=== PATIENT | female | born 1955 | race Caucasian/White ===

== ENCOUNTER 2017-11-30 11:31 | Inpatient (IN) | payer OTHER, SELFPAY ==
[2017-11-30 11:32] VITALS: BP 152/97; PULSE 74; RESP 16; TEMP 36.7; O2SAT 96; BMI 31.3
--- NOTE | 2017-11-30 11:39 | US_ITS ---
STUDY: ABDOMINAL ULTRASOUND - RIGHT UPPER QUADRANT REASON FOR VISIT: Female, 62 years old. Abdominal pain. History of breast cancer. TECHNIQUE: Ultrasound evaluation of the right upper quadrant was performed with real-time and static okeefe-scale imaging. TECHNICAL QUALITY: Adequate. COMPARISON: None. FINDINGS: Liver: The liver measures 17.6 cm. The liver is heterogeneous and nodular. The bile ducts are within normal limits. There is hepatic color flow. The direction of portal flow is hepatopetal. There is no demonstrated mass lesion. Gallbladder: Normal distended gallbladder. The gallbladder wall measures 10 mm. There is a positive sonographic Farfan's sign. There is pericholecystic fluid. There is a solitary echogenic gallstone within the gallbladder. Common Bile Duct (C.B.D.): The common bile duct measures 6 mm. Pancreas: Normal size of the head, body and tail of the pancreas. There is normal echogenicity of the pancreas. There is no demonstrated pancreatic mass or cyst. Right Kidney: Normal size of the right kidney. The right kidney measures 10.2 cm. Normal renal cortex. There is a 1.4 x 1.1 cm hyperechoic lesion in the right kidney US/Gallbladder IMPRESSION: Gallbladder wall thickening with pericholecystic fluid and a gallstone. The sap business analyst reports a positive sonographic Farfan sign. In the appropriate clinical setting, these findings are suspicious for acute cholecystitis and clinical correlation is recommended. Heterogeneous, nodular liver. Further evaluation with CT is recommended. 1.4 cm hyperechoic lesion in the lower pole of the right kidney. This may represent an angiomyolipoma. This can also be further evaluated with CT. Electronically Signed: Ulises Lindquist, at 14:22 EST Tel , Service support ,
--- NOTE | 2017-11-30 11:55 | ED.VISSUMM ---
- ER Visit Summary Date of Service: 11/30/17 Chief Complaint: Upper quadrant abdominal pain. History of Present Illness: The patient is a 62 F history of prior breast CA with prior mastectomy. Also has a history of dya-brwzdof-lkhzdvfqx diabetes and hypertension. Patient states intermittently for last several weeks she has had abdominal pain primarily right upper quadrant. Associated nausea vomiting. No diarrhea. No fever. No dysuria. Her primary care physician on Sunday and have labs drawn are abnormal saw Dr. Hall today who sent her in the ER for further evaluation. Physical Examination: Well-appearing female. Vital signs are stable and afebrile. HEENT exam unremarkable except for alopecia. Neck nontender. Lungs clear to auscultation bilaterally. Heart regular rate and rhythm no murmur. Abdomen is soft. Nondistended. Normal bowel sounds. She does have right upper quadrant tenderness and a Farfan sign. I do not appreciate any hernias or masses. There is no signs of obstruction. She is moving all 4 extremities. They are neurovascularly intact. Neurologic exam is unremarkable. Back exam is nontender. Test Results: Hemogram shows a white count of 7. H&H 1138. Electrolytes unremarkable potassium 3.4 normal creatinine. Liver enzymes are elevated the direct and indirect bilirubin are normal. Alk phos is 408. ALT is 115. Lipase is 114 and normal. Right upper quadrant ultrasound shows thickened gallbladder wall. Gallstone. Pericholecystic fluid around the gallbladder. Questionable left lower lobe mass versus other etiology may need further imaging. I discussed all this with the mold technician pending radiologist interpretation. Emergency Department Course and Treatment: Patient will undergo a workup for possible acute cholecystitis versus other etiologies. We will obtain labs and an ultrasound of the right upper quadrant. Initially the patient did not want any meds and then was given morphine and Zofran because of increasing pain. Treatment Plan: Patient is resting comfortably at 1340. She feels much better. I have gone over all test results with her and her family. I spoken to Dr. Ayo Rodriguez general surgery who be in the ER to evaluate the patient and make final disposition. Disposition: [] Impression: Acute right upper quadrant abdominal pain secondary to acute cholecystitis with cholelithiasis. History of breast CA with prior mastectomy Abnormal ultrasound finding of the left lobe of the liver of uncertain etiology This note was generated with Fetchnotesation software. It may contain incorrect words, spelling, and punctuation that were not noted in review of the chart prior to signing ED Disposition - Plan for ED Patient: Chief Complaint: Abd Pain Referrals: Partha Li MD [Primary Care Provider] -
[2017-11-30] MEDS: Ondansetron 4 MG/2 ML Vial IV (12:26)
[2017-11-30 12:29] LABS: Absolute Lymphocyte Count 1.03 X10^3/ul (0.83-4.51); Absolute Neutrophil Count 6.1 X10^3/uL (2.0-7.7); Basophil# 0.04 X10^3/uL; Basophil% 0.5 % (0-1); Eosinophil# 0.17 X10^3/uL; Eosinophils% 2.2 % (0-5); Hematocrit 38.3 % (37-47); Hemoglobin 11.9 g/dl (12.0-15.0); Lymphocyte # 1.03 X10^3/ul (4.0); Lymphocyte % 13.2 % (19-41); Mean Corp Hgb Conc 31.1 g/gl (32-36); Mean Corpuscular Hgb 27.4 pg (27.0-32.0); Mean Platelet Vol. 9.8 fl (6.2-12.0); Monocyte# 0.49 X10^3/uL; Monocyte% 6.3 % (0-10); Neutrophil # 6.08 X10^3/uL (2.7-7.7); Neutrophil % 77.8 % (47-70); POSITIVE COUNT NO; POSITIVE DIFFERENTIAL NO; POSITIVE MORPHOLOGY NO; Platelet Count 278 K/mm3 (150-450); RBC Distribution Width CV 15.5 % (11.6-14.6); RBC Distribution Width SD 49.6 fl (35.1-43.9); Red Blood Count 4.35 M/mm3 (4.2-5.4); White Blood Count 7.8 K/mm3 (4.4-11.0)
[2017-11-30 12:33] LABS: AST(SGOT) 96 U/L (15-37); Alanine Aminotransfer ALT/SGPT 115 U/L (12-78); Albumin, Serum 3.3 g/dL (3.4-5.0); Alkaline Phosphatase 408 U/L (45-117); Anion Gap 10 (5-15); BUN 17 mg/dL (7-18); BUN/Creat Ratio 27.3 RATIO (10-20); Bilirubin, Direct 0.18 mg/dL (0.00-0.30); Calcium,Total 9.2 mg/dL (8.5-10.1); Chloride 104 mmol/L (98-107); Creatinine, Serum 0.62 mg/dL (0.55-1.02); EST Glomerular Filtration Rate 103 mL/min (>60); Est Glom Filt Rate - Afr Amer 124 mL/min (>60); Estimated Creatinine Clearance 76.83 ml/min; Globulin 4.1 g/dL (2.2-4.2); Glucose 174 mg/dL (70-110); Lipase 114 U/L (73-393); Potassium 3.4 mmol/L (3.5-5.1); Protein, Total 7.4 g/dL (6.4-8.2); Sodium Level 139 mmol/L (136-145)
--- NOTE | 2017-11-30 14:18 | PCM.HP.STD ---
Problem List (1) Acute cholecystitis Status: Acute History of Present Illness Date of Admission: 11/30/17 The patient is a 62 F history of prior breast CA with prior mastectomy. Also has a history of zjb-shrcyla-bvohfblxc diabetes and hypertension. Patient states intermittently for last several weeks she has had abdominal pain primarily right upper quadrant. Associated nausea vomiting. No diarrhea. No fever. No dysuria. Her primary care physician on Sunday and have labs drawn are abnormal saw Dr. aHll today who sent her in the ER for further evaluation. Her workup included ultrasound as well as labs. Hemogram shows a white count of 7. H&H 1138. Electrolytes unremarkable potassium 3.4 normal creatinine. Liver enzymes are elevated the direct and indirect bilirubin are normal. Alk phos is 408. ALT is 115. Lipase is 114 and normal. Right upper quadrant ultrasound shows thickened gallbladder wall. Gallstone. Pericholecystic fluid around the gallbladder. Questionable left lower lobe mass versus other etiology may need further imaging. I am going to admit the patient my plan is to take her to surgery and perform a laparoscopic cholecystectomy with intraoperative cholangiograms on her in the morning. Past Medical History Past Medical History (Chronic Problems): Chronic Problems DM2 (diabetes mellitus, type 2) (Chronic) HTN (hypertension) (Chronic) Hyperlipidemia (Chronic) Hypothyroid (Chronic) Ductal carcinoma (Chronic) Allergies No Known Allergies Allergy (Verified 11/30/17 11:38) Home Medications: Ambulatory Orders Medication Instructions Recorded Cetirizine HCl [Allergy Relief] 10 mg PO DAILY 05/16/17 Doxycycline Hyclate 20 mg PO DAILY 05/16/17 Empagliflozin [Jardiance] 10 mg PO DAILY 05/16/17 Escitalopram Oxalate [Lexapro] 20 mg PO DAILY 05/16/17 Hydrochlorothiazide [Hctz] 25 mg PO DAILY 05/16/17 Levothyroxine [Synthroid] 125 mcg PO DAILY 05/16/17 Propranolol HCl 80 mg PO DAILY 05/16/17 Multivitamin [Daily Multiple 1 each PO DAILY 11/30/17 Vitamin] Sitagliptin Phos/Metformin HCl 1 tab PO DAILY 11/30/17 [Janumet Xr 100-1,000 mg Tablet] Vitamin E 400 unit PO DAILY 11/30/17 Surgical History: mastectomy - Oral Psychiatric History: Depression Lives: Spouse/ Significant Other Smoking Status: Never smoker Tobacco Use: Non-smoker Alcohol: Occasional Drugs: None - *Family History Maternal History Items: - - No history of breast cancer Paternal History Items: Diabetes Review of Systems Constitutional: Denies: Chills, Fever, Weight Change Eyes: Denies: Blurred vision, Pain, Redness, Vision Change HEENT: Denies: Dysphasia, Ear Pain, Eye Pain, Head Aches, Hearing Changes, Sore Throat Cardiovascular: Denies: Chest Pain, Chest Pressure, Chest Tightness, Palpitations Respiratory: Denies: Cough, Hemoptysis, Shortness of breath at rest, Shortness of breath upon exertion, Wheezing Gastrointestinal: Reports: Abdominal Pain, Nausea, Vomiting. Denies: Diarrhea Genitourinary: Denies: Dysuria, Frequency, Hematuria, Urgency Musculoskeletal: Denies: Joint Pain Skin: Denies: Lesions, Rash, Wounds Neurological: Denies: Change in Speech, Confusion, Numbness, Tingling, Seizures Psychiatric: Denies: Anxiety, Depression Endocrine: Denies: Heat/ Cold Intolerance, Polydipsia, Polyuria Hematologic/ Lymphatic: Denies: Adenopathy, Easy Bruising VTE Information - Inpt Only VTE Present on Admission: No VTE Mechan Device Prophylaxis: SCD's VTE Pharm Prophylaxis ordered?: No Reason prophylaxis not ordered:: Treatment Not Indicated Patient Problems: Active and Suspected Problems Acute cholecystitis (Acute) - Physical Exam General: Alert, Oriented x3 HEENT: Atraumatic, PERRLA, EOMI, Normocephalic Oral: Moist Mucosa Neck: Supple, No JVD Lungs: Clear to auscultation Cardiovascular: Regular rate, Regular Rhythm, No murmurs Abdomen: Bowel Sounds Present, Tender - Minimal tenderness is identified in the right upper quadrant there is no rebound guarding or peritoneal signs identified. I cannot feel any masses. Extremities: No clubbing, No cyanosis, No edema Skin: No rashes, No breakdown Musculoskeletal: No Tenderness to Palpation of Joints or Extremities Lymphatic: No Cervical, Supraclavicular, or Inguinal Adenopathy Neurological: Cranial nerves II-XII grossly intact Psych/Mental Status: Normal Affect, Appropriate Vital Signs Temp Pulse Resp BP Pulse Ox 98.1 F 74 16 152/97 H 96 11/30/17 11:32 11/30/17 11:32 11/30/17 11:32 11/30/17 11:32 11/30/17 11:32 Oxygen Delivery Method Room Air Weight: 177 lb Body Mass Index (BMI) 31.3 Finger Stick Blood Glucose 240 Laboratory Tests Past 24 Hrs 11/30/17 11/30/17 12:00 12:00 WBC 7.8 RBC 4.35 Hgb 11.9 L Hct 38.3 MCV 88.0 MCH 27.4 MCHC 31.1 L RDW 15.5 H RDW Differential 49.6 H Plt Count 278 MPV 9.8 Immature Gran % (Auto) 0.000 Neut % (Auto) 77.8 H Lymph % (Auto) 13.2 L [place] % (Auto) 6.3 Eos % (Auto) 2.2 Baso % (Auto) 0.5 Absolute Neuts (auto) 6.1 Absolute Lymphs (auto) 1.03 Total Counted Not Reportable Sodium 139 Potassium 3.4 L Chloride 104 Carbon Dioxide 25.0 Anion Gap 10 BUN 17 Creatinine 0.62 Estim Creat Clear Calc 76.83 Est GFR (MDRD) Af Amer 124 Est GFR (MDRD) Non-Af 103 BUN/Creatinine Ratio 27.3 H Glucose 174 H Calcium 9.2 Total Bilirubin 0.50 Direct Bilirubin 0.18 AST 96 H ALT 115 H Alkaline Phosphatase 408 H Total Protein 7.4 Albumin 3.3 L Globulin 4.1 Lipase 114 Assessment/Plan Active and Suspected Problems Acute cholecystitis (Acute) I plan is to take the patient to surgery and perform a laparoscopic cholecystectomy with intraoperative cholangiograms on her. Risk benefits to the procedure have been reviewed in great detail with both her and her . Her to include bleeding infection possible injury to surrounding structures. I am going to take a look at the liver itself to see if there is a mass that needs to be biopsied however if it is not easily obtained I am going to treat the primary cause of the problem which is the acute cholecystitis. I been asked to see this patient by Dr. Kel Kahn my findings will be sent back to him via electronic medical record
[2017-11-30 14:38] VITALS: BMI 31.4
[2017-11-30 15:20] VITALS: BMI 31.3
[2017-11-30 15:23] VITALS: BP 150/67; PULSE 59; RESP 18; TEMP 36.8; O2SAT 95
[2017-11-30] MEDS: Lactated Ringers 1,000 ML 100 ML IV (15:43)
[2017-11-30] MEDS: 0.9% NaCl VAD Flush 10 ML IV ×2 (18:26→18:36)
[2017-11-30 19:49] VITALS: BMI 31.3
[2017-11-30 21:30] VITALS: BP 151/68; PULSE 68; RESP 18; TEMP 37.1; O2SAT 95
[2017-12-01] VITALS (23 sets, daily range): BP systolic 119–150; BP diastolic 59–81; PULSE 64–83; RESP 14–18; TEMP 35.6–37.4; O2SAT 92–98; BMI 31.4
--- NOTE | 2017-12-01 | IMM_PTH ---
PATIENT: CHRIS CHOUDHARY LOC: MS3 U#:[id number] AGE/SX: 62/F ROOM: IA310 RE11/30/[address]: Dr. Helen Mas, DO : 1955 BED: 1 DIS: 12/04/2017 SPEC #: [id number] RECD: 12/04/17 12:44 STATUS: SOUJeffrey REQ #: [id number] VERONICA: 12/01/17 00:[address]: Branden Rodriguez DEPT: IMMUNOHISTOCHEMISTRY RECD BY: Catherine Hill ENTERED: 12/04/17 13:08 SP TYPE: IMMUNO OTHR DR: MD Dr. Helen Schwartz, DO Tissues: A - Gallbladder, NOS B - Liver, NOS Procedures: RCC (add) NAPSIN A (add) CK20 (add) CK5-6 (add) CK7 (add) CK8 (add) E-CAD (add) HEP PAR (add) HER2 YOGI (add) MAMM (add) LA (add) TTF1 (add) GATA3 (add) P40 (add) ER (initial) Comments: @ Ordering doctor for ER edited from to @ by CRISPIN at 12/04/17 1314 @ Ordering doctor for RCC. edited from to @ by CRISPIN at 12/04/17 1314 @ Ordering doctor for NAP. edited from to @ by CRISPIN at 12/04/17 1314 @ Ordering doctor for CK20. edited from to DR.DPEABO Jerez by CRISPIN at 12/04/17 1314 @ Ordering doctor for CK5-6. edited from to @ by CRISPIN at 12/04/17 1314 @ Ordering doctor for CK7. edited from to DR.DPEABO Jerez by JOSHUAOD at 12/04/17 1314 @ Ordering doctor for CK8. edited from to DR.DPEABO Jerez by RGOOD at 12/04/17 1314 @ Ordering doctor for ECAD. edited from to DR.DPEABO Jerez by CRISPIN at 12/04/17 1314 @ Ordering doctor for HEPPAR. edited from to DR.DPEABO Jerez by RGOOD at 12/04/17 1314 @ Ordering doctor for HER2. edited from to DR.DPEABO Jerez by CRISPIN at 12/04/17 1314 @ Ordering doctor for KAT. edited from to DR.DPEABO Jerez by JOSHUAOD at 12/04/17 1314 @ Ordering doctor for LA. edited from to DR.DPEABO Jerez by CRISPIN at 12/04/17 1314 @ Ordering doctor for TTF1. edited from to DR.DPEABO Jerez by JOSHUAOD at 12/04/17 1314 @ Ordering doctor for GATA3 edited from to DR.DPEABO Jerez by CRISPIN at 12/04/17 1314 @ Ordering doctor for P40. edited from to DR.DPEABO Jerez by CRISPIN at 12/04/17 1314 @ Ordering doctor for CDX2. edited from to DR.DPEABO Jerez by CRISPIN at 12/04/17 1314 @ Submitting doctor edited from to DR.DPEABO Jerez by RGOOD at 12/04/17 1314 PHYSICIAN & [place] [id number] SPECIMEN INFORMATION: Tissue Source: A ? Gallbladder, B ? Liver biopsy Clinical Info: Acute cholecystitis Specimen Number: [id number] A & B CPT code: 34025 x2, 00677 x28 METHODOLOGY: Deparaffinized sections of prefer/formalin-fixed tissue or PAP/DQ stained slides are incubated with monoclonal/polyclonal antibodies/oligonucleotide probes. Localization is made via biotin free immunoperoxidase method. Appropriate controls are performed and reacted as expected. Results on target cell population are indicated in the following table: RESULTS: ANTIBODY / CLONE RESULT Block A ER (6F11) negative LA (1E2) negative Her-2neu (CB11) negative E-Cad (ECH-6) positive Mammaglobin (31A5) negative GATA3 (L50-823) positive, weak CK7 (OV-TL12/30) positive CK8 (66mtidO55) positive CK20 (KS20.8) negative TTF-1 (8G7G3/1) negative Napsin A (Rabbit Polyclonal) negative HepPar (OCh1E5) negative RCC (PN-15) negative CK5-6 (D5 & 1684) negative P40 (BC28) negative Block B ER (6F11) positive, weak LA (1E2) negative Her-2neu (CB11) negative E-Cad (ECH-6) positive Mammaglobin (31A5) negative GATA3 (L50-823) positive CK7 (OV-TL12/30) positive CK8 (16gvrkW70) positive CK20 (KS20.8) negative TTF-1 (8G7G3/1) negative Napsin A (Rabbit Polyclonal) negative HepPar (OCh1E5) negative RCC (PN-15) negative CK5-6 (D5 & 1684) negative P40 (BC28) negative These tests were developed and their performance characteristics determined by [facility]. They may not have been cleared or approved by the U.S. Food and Drug Administration. The FDA has determined that such clearance or approval is not necessary. INTERPRETATION: A. Gallbladder, cholecystectomy: Metastatic carcinoma consistent with breast primary. B. Liver biopsy: Metastatic carcinoma consistent with breast primary. SJ:christal 12/05/17
[2017-12-01] MEDS: Lactated Ringers 1,000 ML 100 ML IV ×2 (00:55→14:59)
--- NOTE | 2017-12-01 02:39 | EKG12_ITS ---
Test Reason : PRE OP Blood Pressure : / mmHG Vent. Rate : 076 BPM Atrial Rate : 076 BPM P-R Int : 140 ms QRS Dur : 088 ms QT Int : 380 ms P-R-T Axes : 055 026 030 degrees QTc Int : 427 ms Normal sinus rhythm Nonspecific T wave abnormality Abnormal ECG Confirmed by GWENDOLYN BURROWS, KYLE ([id number]), map editor FRANCOISE NELSON ([id number]) on 12/06/2017 1:16:45 PM Referred By: Partha Li Confirmed By:KYLE SNOW MD
[2017-12-01] MEDS: 0.9% NaCl VAD Flush 10 ML IV (06:26)
[2017-12-01 06:39] LABS: Absolute Lymphocyte Count 0.69 X10^3/ul (0.83-4.51); Absolute Neutrophil Count 7.2 X10^3/uL (2.0-7.7); Basophil# 0.05 X10^3/uL; Basophil% 0.6 % (0-1); Eosinophil# 0.24 X10^3/uL; Eosinophils% 2.7 % (0-5); Hematocrit 34.3 % (37-47); Hemoglobin 10.7 g/dl (12.0-15.0); Lymphocyte # 0.69 X10^3/ul (4.0); Lymphocyte % 7.7 % (19-41); Mean Corp Hgb Conc 31.2 g/gl (32-36); Mean Corpuscular Hgb 27.4 pg (27.0-32.0); Mean Corpuscular Volume 87.9 fL (81-99); Mean Platelet Vol. 9.2 fl (6.2-12.0); Monocyte# 0.78 X10^3/uL; Monocyte% 8.7 % (0-10); Neutrophil # 7.18 X10^3/uL (2.7-7.7); Neutrophil % 80.1 % (47-70); Platelet Count 228 K/mm3 (150-450); RBC Distribution Width CV 15.8 % (11.6-14.6); RBC Distribution Width SD 50.6 fl (35.1-43.9)
[2017-12-01 06:41] LABS: POSITIVE COUNT NO; POSITIVE DIFFERENTIAL NO; POSITIVE MORPHOLOGY NO
[2017-12-01 06:51] LABS: ALB/GLOB Ratio 0.8 RATIO (0.9-2.4); AST(SGOT) 99 U/L (15-37); Alanine Aminotransfer ALT/SGPT 103 U/L (12-78); Albumin, Serum 2.8 g/dL (3.4-5.0); Alkaline Phosphatase 359 U/L (45-117); Amylase 23 U/L (25-115); Anion Gap 7 (5-15); BUN 11 mg/dL (7-18); BUN/Creat Ratio 21.8 RATIO (10-20); Calcium,Total 8.6 mg/dL (8.5-10.1); Chloride 106 mmol/L (98-107); EST Glomerular Filtration Rate 131 mL/min (>60); Est Glom Filt Rate - Afr Amer 158 mL/min (>60); Estimated Creatinine Clearance 95.27 ml/min; Globulin 3.5 g/dL (2.2-4.2); Glucose 117 mg/dL (70-110); Lipase 88 U/L (73-393); Potassium 3.6 mmol/L (3.5-5.1); Protein, Total 6.3 g/dL (6.4-8.2); Sodium Level 141 mmol/L (136-145)
[2017-12-01 07:01] LABS: Thyroid Stim Hormone (TSH) 2.82 uIU/mL (0.358-3.74)
[2017-12-01 07:32] LABS: Hemoglobin A1c 6.2 % (4.2-6.3)
[2017-12-01] MEDS: Propranolol LA 80 MG Capsule PO (07:53)
[2017-12-01] MEDS: hydroCHLOROthiazide 25 MG Tablet PO (07:53)
--- NOTE | 2017-12-01 09:56 | NURSING ---
called report to Marcela in PACU at this time.
--- NOTE | 2017-12-01 10:00 | GALL_PTH ---
PATIENT: CHRIS CHOUDHARY LOC: MS3 U#:[id number] AGE/SX: 62/F ROOM: MS310 RE11/30/[address]: Dr. Helen Mas DO : 1955 BED: 1 DIS: 12/04/2017 SPEC #: [id number] RECD: 12/03/17 09:35 STATUS: EHSAN BASIL #: [id number] VERONICA: 12/01/17 10:[address]: Branden Rodriguez DEPT: SURGICAL PATHOLOGY RECD BY: Angel Recinos ENTERED: 12/03/17 10:08 SP TYPE: JUNIOR BARBOSA DR: Dr. Anthony Li MD Tissues: A - Gallbladder, NOS B - Liver, NOS Procedures: Surgery Specimen Level IV Surgery Specimen Level V HEADER OPERATION: Open cholecystectomy and liver biopsy PRE-OP DIAGNOSIS: Acute cholecystitis TISSUE SUBMITTED: A ? Gallbladder and stone, B ? Liver biopsy MICROSCOPIC DIAGNOSIS A. Gallbladder and stone: Metastatic carcinoma, consistent with breast primary. See comment. Acute and chronic ulcerated and hemorrhagic cholecystitis and cholelithiasis. B. Liver, core biopsy: Metastatic carcinoma, consistent with breast primary. SJ:christal 12/05/17 COMMENT A. The metastatic carcinoma is noted in the serosa, subserosal tissue with extensive lymph-vascular invasion. Adherent piece of the liver tissue also shows metastatic carcinoma. A & B. Immunohistochemistry ([id number]) supports the above diagnosis. Please make reference to previous specimen ([id number]) left breast, mastectomy with diagnosis of invasive adenocarcinoma. Case has been reviewed in consultation with Dr. Payne who concurs with the above diagnosis. IDC:AM MICROSCOPIC DESCRIPTION Slides are reviewed. GROSS DESCRIPTION A - Received is one container labeled with the patient's name and designated gallbladder and stone. The specimen consists of a previously opened gallbladder consisting of only distal half of the specimen. The proximal portion along the cystic duct is not identified. The gallbladder measures 6 cm in length and 4.5 cm in diameter. No bile is identified. The mucosa is congested and hemorrhagic. Also present in the container is an ovoid brownish-black stone measuring 5 x 3.5 x 3 cm. The gallbladder wall measures up to 1 cm in thickness. Sections of gallbladder wall reveal congested and hemorrhagic cut surfaces. Stone Cutter sections from the gallbladder are submitted in one cassette. / : 12/03/17 More sections are submitted in cassette #2 & 3. / : 12/04/17 B - Received in fixative is one container labeled with the patient's name and designated liver biopsy. The specimen consists of multiple elongated fragments of goss-light yellow soft tissue that in aggregate measure 1.5 x 0.3 x 0.1 cm. The specimen is totally submitted in one cassette. / : 12/03/17 TC:0 CPT: 10027, 01567
--- NOTE | 2017-12-01 10:26 | OP.PCM_ITS ---
Problem List (1) Acute cholecystitis Status: Acute Report of Operation Date of Procedure: 12/01/17 Pre-Operative Diagnosis: acute cholecystitis Post-Operative Diagnosis: same Surgery/Procedure Performed:: Open cholecystectomy Type of Anesthesia:: General Anesthesiologist: Betina Demarco Specimen's removed: Gallbladder Estimated Blood Loss (mL): < 50 cc Fluids Replaced: 1 L Description of Procedure: Patient was brought into the operating room and placed in the supine position. Under excellent endotracheal intubation the abdomen was sterilely prepped and draped in the usual fashion. Local was injected infraumbilically. Dissection was carried down to the fascia. Fascia was grasped with a [place]. Varies needle was placed inside the abdomen. Abdomen was insufflated to 15 torr. A 10 /12 trocar was placed without difficulty. A subxiphoid #5 trocar was placed. Inferior to this another #5 trocar was placed. Laterally a #5 trocar was placed. All of these under direct visualization without injury to underlying structures. Patient had dense adhesions on the gallbladder. I took these down sharply without difficulty I deflated the gallbladder it was hydrops a significantly large stone was located within it I was unable to grasp it well I ended up trying to grasp the falciform ligament to then started dissection from dome down but once again this was just impossible because there was a mass in the right lobe of the liver and I was afraid that I would end up getting into too much bleeding. This mass had the appearance of metastatic cancer and she has a known history of breast cancer at this point I made a determination that it would be best if I made an open incision I did a standard open cholecystectomy. Subcostal incision was made through the subcutaneous tissues external oblique fascia was opened rectus abdominis muscle was transected with electrocautery posterior fascia was opened I extended it laterally with use of electrocautery placed a retractor with the aid of a sponge to protect the duodenum placed another retractor on the liver itself and I dissected bluntly with my fingertips the liver from the gallbladder I came down to an area where the cystic duct would have met with the gallbladder this area was very thick the anatomy was not very clear I made a determination that it would be best if I placed a Endoloop of 2-0 Vicryl down at the base of the gallbladder. I opened the gallbladder removed an extremely large stone I then placed the Endoloop around the gallbladder down towards the juncture of the gallbladder and the cystic duct and I tightened it down. I transected the gallbladder leaving if approximately 10% of the distal gallbladder in the wound and remove the remaining part of the gallbladder sending it to pathology for permanent sectioning. I use electrocautery along the edge of the gallbladder I had excellent hemostasis. I placed a 15 round Chavez-Bhat drain through the lateral trocar site into the abdominal area suturing it to the skin with a 3-0 nylon I inspected I had good hemostasis on the gallbladder edge I did a Yemi-Cut needle core biopsy of this large mass in the right lobe of the liver this had every appearance of metastatic cancer there were several other areas on the left side of the liver that also had the appearance of metastatic disease. The liver itself was extremely firm. Once I was not sure that I had an accurate needle and sponge count and I had good hemostasis I closed the posterior fascia with a #1 PDS and then closed the anterior fascia with another #1 PDS local was injected subcu was brought together with a 2-0 Vicryl deep dermals of 3-0 Vicryl in a running 4-0 Monocryl. I closed the fascia of the umbilical port with a fibjkr-rq-jserz stitch of 0 Vicryl. Skin incisions were all then closed with subcu stitches of 4-0 Monocryl. Sterile dressings were applied and she tolerated this well. - Admit VTE Documentation VTE Present on Admission: No VTE Mechan Device Prophylaxis: SCD's VTE Pharm Prophylaxis ordered?: No Reason prophylaxis not ordered:: Treatment Not Indicated
[2017-12-01] MEDS: Bupivacaine Mpf 0.5% 30 ML VIAL (11:30)
[2017-12-01 12:15] LABS: Bedside Glucose 138 mg/dL (70-110)
[2017-12-01] MEDS: Ondansetron 4 MG/2 ML Vial IV (13:11)
[2017-12-01] MEDS: HYDROmorphone PCA 0.2 MG/ML 100 ML BAG 20 MG IV (13:19)
[2017-12-01] MEDS: Escitalopram Oxalate 20 MG Tablet PO (14:50)
--- NOTE | 2017-12-01 17:18 | CASEMGMT ---
ELIGIO AGUIRRE Face to Face with patient for initial transition planning/care coordination assessment. RN TIMOTHY introduced self and role at [facility]. Patient llying in chair, alert and oriented. Patient willing to participate in assessment and is able to answer all questions appropriately. Care providers, pharmacy, and demographics verified. See link attached. Patient wishes to discharge home, denies need for home health at this time. Patient states she has no further needs or concerns at this time. CM to follow for discharge planning needs that may arise. Disposition Plan: Patient to discharge home with family support and follow-up plans in place.
[2017-12-02] VITALS (19 sets, daily range): BP systolic 129–146; BP diastolic 60–73; PULSE 69–81; RESP 16–18; TEMP 35.9–37.4; O2SAT 92–95
[2017-12-02] MEDS: Lactated Ringers 1,000 ML 100 ML IV ×3 (00:50→21:46)
[2017-12-02] MEDS: Levothyroxine 125 MCG Tablet PO (05:42)
[2017-12-02] MEDS: Propranolol LA 80 MG Capsule PO (09:43)
[2017-12-02] MEDS: Escitalopram Oxalate 20 MG Tablet PO (09:43)
[2017-12-02] MEDS: hydroCHLOROthiazide 25 MG Tablet PO (09:43)
[2017-12-02] MEDS: 0.9% NaCl VAD Flush 10 ML IV (09:49)
--- NOTE | 2017-12-02 10:20 | PCM.PN.SRG ---
Patient Problems: Active and Suspected Problems Acute cholecystitis (Acute) Subjective: Patient complaining of pain on the lateral aspect of her incision particularly where the AYAAN drain is coming out. Dressing is dry at this time. Abdomen is distended. She has not complained of any nausea or vomiting. She also has not had any flatus or bowel movements. Objective: Abdomen is soft distended hypoactive bowel sounds. Dressing is dry - Physical Exam Vital Signs Temp Pulse Resp BP Pulse Ox 98.1 F 73 18 146/73 H 95 12/02/17 09:36 12/02/17 09:36 12/02/17 09:36 12/02/17 09:36 12/02/17 09:36 Oxygen Flow Rate 2 Oxygen Delivery Method Nasal Cannula Weight: 177 lb 0.005 oz Body Mass Index (BMI) 31.3 Finger Stick Blood Glucose 138 Intake and Output for Last 24 Hours 11/30/17 12/01/17 12/02/17 23:59 23:59 23:59 Intake Total 389 / 389 3631.6 / 3631.6 970 / 970 Output Total 555 / 555 230 / 230 Balance 389 / 389 3076.6 / 3076.6 740 / 740 POC Glucose 12/01/17 12:10 POC Glucose 138 H Assessment/Plan Active and Suspected Problems Acute cholecystitis (Acute) Postoperative day #1 Await GI function. AYAAN drainage has dramatically decreased. Liver function tests are still elevated I am not sure if this is a component of what I did or if this could mean that there is some elevation secondary to the tumor burden in her liver. Total bilirubin is normal. We will encourage ambulation today.
[2017-12-02] MEDS: Ondansetron 4 MG/2 ML Vial IV (17:48)
[2017-12-03] VITALS (14 sets, daily range): BP systolic 130–159; BP diastolic 67–93; PULSE 65–80; RESP 16–18; TEMP 36.4–37.7; O2SAT 92–94
[2017-12-03] MEDS: Levothyroxine 125 MCG Tablet PO (05:46)
--- NOTE | 2017-12-03 07:04 | PCM.PN.SRG ---
Patient Problems: Active and Suspected Problems Acute cholecystitis (Acute) Subjective: Patient evaluated resting comfortably in bed. She notes minimal amount of incisional discomfort. She notes feeling weak. Patient states she does not have an appetite. AYAAN drain has moderate amount of output. Patient denies flatus. She notes nausea. Denies vomiting. - Physical Exam General: Alert, Oriented x3, Cooperative Abdomen: Hypoactive Bowel Sounds, Distended, Tender - RUQ, - - Incisions c/d/i. No erythema or infection noted. AYAAN drain with SA fluid noted and small blood clot. Vital Signs Temp Pulse Resp BP Pulse Ox 98.5 F 78 18 136/73 H 93 12/03/17 05:30 12/03/17 05:30 12/03/17 05:52 12/03/17 05:30 12/03/17 05:52 Oxygen Flow Rate 1 Oxygen Delivery Method Nasal Cannula Weight: 177 lb 0.005 oz Body Mass Index (BMI) 31.3 Finger Stick Blood Glucose 138 Intake and Output for Last 24 Hours 12/01/17 12/02/17 12/03/17 23:59 23:59 23:59 Intake Total 3631.6 / 3631.6 2512 / 2512 2107.1 / 2107.1 Output Total 555 / 555 860 / 860 270 / 270 Balance 3076.6 / 3076.6 1652 / 1652 1837.1 / 1837.1 Assessment/Plan Active and Suspected Problems Acute cholecystitis (Acute) I am following this patient in conjunction with Dr. Rodriguez Impression: S/p open cholecystectomy with AYAAN drain placement - Encourage ambulation and I.S. - Recommend Ensure or other protein supplementation - Patient notes she will not see Dr. Isaac until December. She has completed chemo - Recheck AYAAN drain tomorrow for removal - Possible discharge tomorrow - We will continue to monitor this patient Code Visit Inpatient E&M: 62194 Subs Hosp L1 - Post-op charge
[2017-12-03] MEDS: Lactated Ringers 1,000 ML 70 ML IV (08:30)
[2017-12-03] MEDS: Ondansetron 4 MG/2 ML Vial IV ×2 (08:48→17:55)
[2017-12-03] MEDS: Propranolol LA 80 MG Capsule PO (10:08)
[2017-12-03] MEDS: Escitalopram Oxalate 20 MG Tablet PO (10:08)
[2017-12-03] MEDS: hydroCHLOROthiazide 25 MG Tablet PO (10:08)
[2017-12-03 11:04] LABS: Absolute Lymphocyte Count 0.66 X10^3/ul (0.83-4.51); Absolute Neutrophil Count 9.1 X10^3/uL (2.0-7.7); Basophil# 0.03 X10^3/uL; Basophil% 0.3 % (0-1); Eosinophil# 0.12 X10^3/uL; Eosinophils% 1.1 % (0-5); Hematocrit 31.6 % (37-47); Hemoglobin 9.8 g/dl (12.0-15.0); Lymphocyte # 0.66 X10^3/ul (4.0); Lymphocyte % 6.1 % (19-41); Mean Corpuscular Hgb 27.3 pg (27.0-32.0); Mean Platelet Vol. 9.6 fl (6.2-12.0); Monocyte# 0.93 X10^3/uL; Monocyte% 8.6 % (0-10); Neutrophil # 9.07 X10^3/uL (2.7-7.7); Neutrophil % 83.8 % (47-70); Platelet Count 240 K/mm3 (150-450); RBC Distribution Width CV 15.7 % (11.6-14.6); RBC Distribution Width SD 50.8 fl (35.1-43.9); Red Blood Count 3.59 M/mm3 (4.2-5.4); White Blood Count 10.8 K/mm3 (4.4-11.0)
[2017-12-03 11:11] LABS: POSITIVE COUNT NO; POSITIVE DIFFERENTIAL NO; POSITIVE MORPHOLOGY NO
[2017-12-03 11:37] LABS: ALB/GLOB Ratio 0.6 RATIO (0.9-2.4); AST(SGOT) 102 U/L (15-37); Alanine Aminotransfer ALT/SGPT 86 U/L (12-78); Albumin, Serum 2.4 g/dL (3.4-5.0); Alkaline Phosphatase 297 U/L (45-117); Anion Gap 7 (5-15); BUN 6 mg/dL (7-18); BUN/Creat Ratio 15.2 RATIO (10-20); Calcium,Total 8.6 mg/dL (8.5-10.1); Chloride 96 mmol/L (98-107); Creatinine, Serum 0.39 mg/dL (0.55-1.02); EST Glomerular Filtration Rate 174 mL/min (>60); Est Glom Filt Rate - Afr Amer 211 mL/min (>60); Estimated Creatinine Clearance 122.14 ml/min; Globulin 3.7 g/dL (2.2-4.2); Glucose 119 mg/dL (70-110); Magnesium 1.5 mg/dL (1.8-2.4); Phosphorus 3.3 mg/dL (2.5-4.9); Potassium 3.4 mmol/L (3.5-5.1); Protein, Total 6.1 g/dL (6.4-8.2); Sodium Level 135 mmol/L (136-145)
--- NOTE | 2017-12-03 14:19 | PCM.PN.BLA ---
Progress Note Hospitalist consult: Requested by Dr. Rodriguez
--- NOTE | 2017-12-03 15:56 | NURSING ---
dc'ed onsite case manager with nazia Echevarria rn 64ml dilaudid wasted
--- NOTE | 2017-12-03 17:03 | PCM.PN.BLA ---
Progress Note Hospitalist consult: Requested by Dr. Rodriguez. Patient is a 62-year-old female with a past medical history of hypertension, diabetes mellitus type 2, hyperlipidemia, hypothyroidism and history of ductal carcinoma of the breast who was admitted to the hospital on 11/30/[address] Rodriguez complaining of right upper quadrant pain. She underwent open cholecystectomy on 12/01/2017. She complained of fluttering in her chest today and the hospitalist service was consulted to participate in medical management. EKG done today shows NSR with PAC's and non-specific T wave changes. No ventricular ectopy on telemetry. She is desaturating upon review of the telemetry strips and she has not been doing the IS. Occasional cough which she does not like because it increases the Abd pain. She denies any history of coronary artery disease, congestive heart failure or cardiac dysrhythmia. She currently denies chest pain. FH - There is no family history of coronary artery disease and she is a lifelong non-smoker. A complete review of systems was done and the patient is complaining of right upper quadrant pain and fluttering in her chest only. She has passed only a small amount of flatus and has not had a bowel movement since admission. Remainder of the review of systems was negative. All lab was personally reviewed. The sodium is low at 135 today and the potassium is 3.4. BUN is 6 with a creatinine of 0.39. Blood sugars have been mildly elevated but hemoglobin A1c was 6.2. LFTs are abnormal but trending down. Phosphorus was within normal limits but the magnesium is low at 1.5. She had been on HCTZ at home for BP control and was also on Propanolol. Both of these medications were continued at admission. Appetite has been very poor recently due to chemotherapy and she has continued to take the HCTZ. Current vital signs are temperature 98.6, pulse rate 65, blood pressure 141/70, respiratory rate 16 and she is 94% saturated on room air. She is alert and oriented ?3 and appears in no acute distress. Auscultation of the lungs anteriorly and lateral revealed them to be clear to auscultation. There is a mild decrease in breath sounds in the right base. The heart had a regular rate and rhythm with an occasional ectopic beat. She has no murmur, no gallop and no rub. S1 and S2 were normal. Carotids have brisk upstroke and good pulse volume with no carotid bruits. There was no jugular vein distention. She has had bilateral mastectomy. Abdomen was mildly distended and tympanic with good bowel sounds heard in all 4 quadrants. No calf pain. Peripheral pulses are normal. No cyanosis, rashes, skin breakdown and no clubbing of the digits. Neuro exam is nonfocal and cranial nerves II through XII are grossly intact. Impressions 1. Postop day #2-status post open cholecystectomy 2. History of ductal carcinoma of the breast with bilateral mastectomy and recent recurrence-currently on chemotherapy. 3. Hypomagnesemia 4. Hypokalemia 5. Hypertension 6. Hyperlipidemia 7. Diabetes mellitus type 2-very well controlled 8. Abnormal LFTs 9. Premature atrial contractions secondary to hypomagnesemia, hypokalemia and hypoxemia. Supplement MAG and potassium. DC the LR and give 1 lit NS with 20 KCL and then DC Encouraged her to use the IS regularly to prevent PNA. Encouraged her to ask for pain medication prior to using IS so that she is better able to take a deep breath without pain Recheck a BMP and MAG in the AM DC the HCTZ......it is probably better not to use this is a pt actively receiving chemo and having poor appetite and intake. Thank you for allowing us to participate in the management of your patient while in the hospital. Will follow along with you until discharge. Code Visit Inpatient E&M: 67530 Subs Hosp L3
[2017-12-03] MEDS: 0.9% NaCl VAD Flush 10 ML IV ×3 (17:55→19:01)
[2017-12-03] MEDS: Lactulose 20 GM/30 ML UDC 10 GM PO (17:56)
[2017-12-04 01:44] VITALS: BP 138/70; PULSE 69; RESP 16; TEMP 37; O2SAT 92
[2017-12-04 04:47] VITALS: PULSE 73
[2017-12-04] MEDS: 0.9% NaCl IVPB Med Flush (250 mL) 15 ML IV (05:42)
[2017-12-04] MEDS: Levothyroxine 125 MCG Tablet PO (05:43)
[2017-12-04 06:31] LABS: Anion Gap 8 (5-15); BUN 6 mg/dL (7-18); BUN/Creat Ratio 15.6 RATIO (10-20); Calcium,Total 8.3 mg/dL (8.5-10.1); Chloride 99 mmol/L (98-107); Creatinine, Serum 0.38 mg/dL (0.55-1.02); EST Glomerular Filtration Rate 180 mL/min (>60); Est Glom Filt Rate - Afr Amer 217 mL/min (>60); Estimated Creatinine Clearance 125.35 ml/min; Glucose 121 mg/dL (70-110); Magnesium 2.3 mg/dL (1.6-2.6); Potassium 3.7 mmol/L (3.5-5.1); Sodium Level 139 mmol/L (136-145)
[2017-12-04 07:45] VITALS: BP 134/70; PULSE 72; RESP 18; TEMP 36.9; O2SAT 94
--- NOTE | 2017-12-04 08:22 | PN.SURG_ITS ---
Patient Problems: Active and Suspected Problems Acute cholecystitis (Acute) Subjective: Patient evaluated resting comfortably in bed. She notes incisional discomfort with movement. She denies nausea and vomiting this morning. She notes lack of appetite. She has been passing flatus. AYAAN output was 110 cc over the last 6 hours. - Physical Exam General: Alert, Oriented x3, Cooperative Lungs: Clear to auscultation Cardiovascular: Regular rate, Regular Rhythm Abdomen: Bowel Sounds Present, Soft, Distended, - - Incisions c/d/i. No erythema or infection noted. AYAAN drain intact with SA fluid noted. Vital Signs Temp Pulse Resp BP Pulse Ox 98.4 F 72 18 134/70 H 94 12/04/17 07:45 12/04/17 07:45 12/04/17 07:45 12/04/17 07:45 12/04/17 07:45 Oxygen Flow Rate 1 Oxygen Delivery Method Room Air Weight: 177 lb 0.005 oz Body Mass Index (BMI) 31.3 Finger Stick Blood Glucose 138 Intake and Output for Last 24 Hours 12/02/17 12/03/17 12/04/17 23:59 23:59 23:59 Intake Total 2512 / 2512 3325.1 / 3325.1 450 / 450 Output Total 860 / 860 380 / 380 125 / 125 Balance 1652 / 1652 2945.1 / 2945.1 325 / 325 Laboratory Tests Past 24 Hrs 12/03/17 12/03/17 12/04/17 10:44 10:44 05:50 WBC 10.8 RBC 3.59 L Hgb 9.8 L Hct 31.6 L MCV 88.0 MCH 27.3 MCHC 31.0 L RDW 15.7 H RDW Differential 50.8 H Plt Count 240 MPV 9.6 Immature Gran % (Auto) 0.100 Neut % (Auto) 83.8 H Lymph % (Auto) 6.1 L [place] % (Auto) 8.6 Eos % (Auto) 1.1 Baso % (Auto) 0.3 Absolute Neuts (auto) 9.1 H Absolute Lymphs (auto) 0.66 L Total Counted Not Reportable Sodium 135 L 139 Potassium 3.4 L 3.7 Chloride 96 L 99 Carbon Dioxide 32.0 32.0 Anion Gap 7 8 BUN 6 L 6 L Creatinine 0.39 L 0.38 L Estim Creat Clear Calc 122.14 125.35 Est GFR (MDRD) Af Amer 211 217 Est GFR (MDRD) Non-Af 174 180 BUN/Creatinine Ratio 15.2 15.6 Glucose 119 H 121 H Calcium 8.6 8.3 L Phosphorus 3.3 Magnesium 1.5 L 2.3 Total Bilirubin 0.80 AST 102 H ALT 86 H Alkaline Phosphatase 297 H Total Protein 6.1 L Albumin 2.4 L Globulin 3.7 Albumin/Globulin Ratio 0.6 L Assessment/Plan Active and Suspected Problems Acute cholecystitis (Acute) I am following this patient in conjunction with Dr. Rodriguez Impression: S/p open cholecystectomy with AYAAN drain placement - Encourage ambulation and I.S. - Recommend Ensure or other protein supplementation - Dr. Rodriguez will recheck AYAAN drain later today for removal - Probable discharge today - We will continue to monitor this patient
--- NOTE | 2017-12-04 08:44 | PCM.PN.BLA ---
Progress Note All events of the past 24 hours of been reviewed. Blood pressures are for the most part controlled but the HCTZ was just discontinued yesterday Pulse ox on room air today is 94%. Potassium is 3.7 and the magnesium is 2.3 today following supplementation. Hyponatremia has resolved and the sodium today is 139. Hydrochlorothiazide was discontinued on 12/03/2017 but will continue to be active in her system for the next 48-72 hours. Will prescribe an additional potassium and magnesium. She is alert and oriented ?3 and appears in no acute distress. Auscultation of the lungs anteriorly and lateral revealed them to be clear to auscultation. There is a mild decrease in breath sounds in the right base. The heart had a regular rate and rhythm with an occasional ectopic beat. She has no murmur, no gallop and no rub. S1 and S2 were normal. Carotids have brisk upstroke and good pulse volume with no carotid bruits. There was no jugular vein distention. She has had bilateral mastectomy. Abdomen was mildly distended and tympanic with good bowel sounds heard in all 4 quadrants. No calf pain. Peripheral pulses are normal. No cyanosis, rashes, skin breakdown and no clubbing of the digits. Neuro exam is nonfocal and cranial nerves II through XII are grossly intact. Impressions 1. Postop day #2-status post open cholecystectomy 2. History of ductal carcinoma of the breast with bilateral mastectomy and recent recurrence-currently on chemotherapy. 3. Hypomagnesemia 4. Hypokalemia 5. Hypertension 6. Hyperlipidemia 7. Diabetes mellitus type 2-very well controlled 8. Abnormal LFTs 9. Premature atrial contractions secondary to hypomagnesemia, hypokalemia and hypoxemia. BP better with addition of amlodipine to the drug regimen. would continue this at [place] Would discontinue HCTZ which is causing low mag and K because she is currently receiving chemotherapy and often has no appetite and has poor fluid intake. Code Visit Inpatient E&M: 11203 [facility] Hosp L1
--- NOTE | 2017-12-04 08:49 | PN_ITS ---
Progress Note All events of the past 24 hours of been reviewed. Blood pressures are for the most part controlled but the HCTZ was just discontinued yesterday Pulse ox on room air today is 94%. Potassium is 3.7 and the magnesium is 2.3 today following supplementation. Hyponatremia has resolved and the sodium today is 139. Hydrochlorothiazide was discontinued on 12/03/2017 but will continue to be active in her system for the next 48-72 hours. Will prescribe an additional potassium and magnesium. She is alert and oriented ?3 and appears in no acute distress. Auscultation of the lungs anteriorly and lateral revealed them to be clear to auscultation. There is a mild decrease in breath sounds in the right base. The heart had a regular rate and rhythm with an occasional ectopic beat. She has no murmur, no gallop and no rub. S1 and S2 were normal. Carotids have brisk upstroke and good pulse volume with no carotid bruits. There was no jugular vein distention. She has had bilateral mastectomy. Abdomen was mildly distended and tympanic with good bowel sounds heard in all 4 quadrants. No calf pain. Peripheral pulses are normal. No cyanosis, rashes, skin breakdown and no clubbing of the digits. Neuro exam is nonfocal and cranial nerves II through XII are grossly intact. Impressions 1. Postop day #2-status post open cholecystectomy 2. History of ductal carcinoma of the breast with bilateral mastectomy and recent recurrence-currently on chemotherapy. 3. Hypomagnesemia 4. Hypokalemia 5. Hypertension 6. Hyperlipidemia 7. Diabetes mellitus type 2-very well controlled 8. Abnormal LFTs 9. Premature atrial contractions secondary to hypomagnesemia, hypokalemia and hypoxemia. BP better with addition of amlodipine to the drug regimen. would continue this at [place] Would discontinue HCTZ which is causing low mag and K because she is currently receiving chemotherapy and often has no appetite and has poor fluid intake. Code Visit Inpatient E&M: 29244 [facility] Hosp L1
[2017-12-04] MEDS: Lisinopril 5 MG Tablet PO (09:39)
[2017-12-04] MEDS: 0.9% NaCl VAD Flush 10 ML IV (09:39)
[2017-12-04] MEDS: Magnesium Oxide 400 MG Tablet PO (09:39)
[2017-12-04] MEDS: Ondansetron 4 MG/2 ML Vial IV (09:39)
[2017-12-04] MEDS: Propranolol LA 80 MG Capsule PO (09:39)
[2017-12-04] MEDS: Escitalopram Oxalate 20 MG Tablet PO (09:39)
[2017-12-04 10:00] VITALS: PULSE 74
--- NOTE | 2017-12-04 10:27 | PCM.DC.GB ---
Discharge Diet: Light diet - advance as tolerated Discharge Activity: Return to Normal Activity, May Not Drive - for 2-3 days or while taking narcotic pain medicataions., - - Do not drive, work heavy equipment or sign legal documents for 24 hours. May shower in (days): 1 - with the bandage in place. Additional Activity Instructions:: Pain medication may cause nausea. You should typically eat light foods as you take your pain medications. Pain medication may also cause constipation. If this is a problem for you, please discuss with your doctor. Call your doctor if your incision/area has: Continuous Slow Oozing, Sudden Increased Bleeding, Increased Pain/ Swelling, Increased Redness, Foul Smelling Discharge, Fever of 101 or Higher Call your doctor if you observe: Fever of 101 or Higher Suture Line Care: Avoid Pulling/Pushing, Avoid Pinching/Bending Cleanse incision/area with: Soap & Water Additional Dressing/Incision Instructions:: Leave operative bandaids on for 2 days. When you remove dressing, leave Steri-Strips on until your follow-up appointment, or until the Steri-Strips fall off on their own. Allergies/Adverse Reactions: Allergies No Known Allergies Allergy (Verified 11/30/17 11:38) Medications to take at Discharge Cetirizine HCl [Allergy Relief] 10 mg PO DAILY 05/16/17 Doxycycline Hyclate 20 mg PO DAILY 05/16/17 Empagliflozin [Jardiance] 10 mg PO DAILY 05/16/17 Escitalopram Oxalate [Lexapro] 20 mg PO DAILY 05/16/17 Levothyroxine [Synthroid] 125 mcg PO DAILY 05/16/17 Propranolol HCl 80 mg PO DAILY 05/16/17 Multivitamin [Daily Multiple Vitamin] 1 each PO DAILY 11/30/17 Sitagliptin Phos/Metformin HCl [Janumet Xr 100-1,000 mg Tablet] 1 tab PO DAILY 11/30/17 Vitamin E 400 unit PO DAILY 11/30/17 Hydrocodone Bitart/Apap 5-325 [[place] 5/325] 1 tablet PO Q6H PRN PRN #15 tablet 12/04/17 Lisinopril [Zestril] 5 mg PO DAILY #30 tablet 12/04/17 The following prescriptions were given: Hydrocodone Bitart/Apap 5-325 [[place] 5/325] 1 tablet PO Q6H PRN PRN #15 tablet PRN Reason: Severe Pain (-08/28) Lisinopril [Zestril] 5 mg PO DAILY #30 tablet Primary Care Physician: Partha Li MD [Primary Care Provider] - Please follow up with your Primary Care Physician in: 7-10 days Please Follow Up With: Misa Marquez PA-C - [phone] When: 10 days Proposed Discharge Date: 12/04/17
--- NOTE | 2017-12-04 12:12 | PCM.DC.SUM ---
Discharge Date and Diagnosis Date of Admission: 11/30/17 Date of Discharge: 12/04/17 - Primary Discharge Diagnosis Acute cholecystitis - Secondary Discharge Diagnosis Chronic Problems DM2 (diabetes mellitus, type 2) (Chronic) HTN (hypertension) (Chronic) Hyperlipidemia (Chronic) Hypothyroid (Chronic) Ductal carcinoma (Chronic) Hospital Course and Treatment Operations: cholecystecomy - Laparoscopic converted to open cholecystectomy, - Summary of Care Provided: The patient is a 62 year old F who presented on 11/30/17 with right upper quadrant pain. Dr. Rodriguez performed a laparoscopic converted to open cholecystectomy on 12/01/17. Patient tolerated the procedure well. An incidental liver lesion was found. Patient has a history of breast cancer. She recently completed chemotherapy. Patient had AYAAN drain placed which was removed on 12/04/17. On 12/03/17, hospitalist was consulted for fluttering of the heart and EKG demonstrating PAC's with normal sinus rhythm. Patient's potassium and magnesium were replaced. HCTZ was discontinued due to patient's lack of appetite and low potassium and magnesium. Upon discharge, patient noted incision al discomfort with movement. She notes her appetite is slowly improving. She notes positive flatus. Discharge Diet: Light diet - advance as tolerated Discharge Activity: Return to Normal Activity, May Not Drive - for 2-3 days or while taking narcotic pain medicataions., - - Do not drive, work heavy equipment or sign legal documents for 24 hours. May shower in (days): 1 - with the bandage in place. Additional Activity Instructions:: Pain medication may cause nausea. You should typically eat light foods as you take your pain medications. Pain medication may also cause constipation. If this is a problem for you, please discuss with your doctor. Call your doctor if your incision/area has: Continuous Slow Oozing, Sudden Increased Bleeding, Increased Pain/ Swelling, Increased Redness, Foul Smelling Discharge, Fever of 101 or Higher Call your doctor if you observe: Fever of 101 or Higher Suture Line Care: Avoid Pulling/Pushing, Avoid Pinching/Bending Cleanse incision/area with: Soap & Water Additional Dressing/Incision Instructions:: Leave operative bandaids on for 2 days. When you remove dressing, leave Steri-Strips on until your follow-up appointment, or until the Steri-Strips fall off on their own. Home Medications: Medications to take at Discharge Cetirizine HCl [Allergy Relief] 10 mg PO DAILY 05/16/17 Doxycycline Hyclate 20 mg PO DAILY 05/16/17 Empagliflozin [Jardiance] 10 mg PO DAILY 05/16/17 Escitalopram Oxalate [Lexapro] 20 mg PO DAILY 05/16/17 Levothyroxine [Synthroid] 125 mcg PO DAILY 05/16/17 Propranolol HCl 80 mg PO DAILY 05/16/17 Multivitamin [Daily Multiple Vitamin] 1 each PO DAILY 11/30/17 Sitagliptin Phos/Metformin HCl [Janumet Xr 100-1,000 mg Tablet] 1 tab PO DAILY 11/30/17 Vitamin E 400 unit PO DAILY 11/30/17 Hydrocodone Bitart/Apap 5-325 [[place] 5/325] 1 tab PO Q6H PRN PRN #15 tab 12/04/17 Lisinopril [Zestril] 5 mg PO DAILY #30 tab 12/04/17 Following Prescrptions Were Given to Patient: Hydrocodone Bitart/Apap 5-325 [[place] 5/325] 1 tab PO Q6H PRN PRN #15 tab PRN Reason: Severe Pain (-08/28) Lisinopril [Zestril] 5 mg PO DAILY #30 tab Primary Care Physician: Partha Li MD [Primary Care Provider] - Please follow up with your Primary Care Physician in: 7-10 days Please Follow Up With: Misa Marquez PA-C - [phone] When: 10 days Disposition: Home Minutes spent on discharge:: 30 Patient Condition:: Stable Meaningful Use Info Meaningful Use Diagnoses (Choose all that apply): None applicable Code Visit Inpatient E&M: 52687 Disch Hosp
[2017-12-04 12:15] VITALS: BP 134/70; PULSE 72; RESP 18; TEMP 36.9; O2SAT 94
--- NOTE | 2017-12-04 12:20 | DS.PCM_ITS ---
Discharge Date and Diagnosis Date of Admission: 11/30/17 Date of Discharge: 12/04/17 - Primary Discharge Diagnosis Acute cholecystitis - Secondary Discharge Diagnosis Chronic Problems DM2 (diabetes mellitus, type 2) (Chronic) HTN (hypertension) (Chronic) Hyperlipidemia (Chronic) Hypothyroid (Chronic) Ductal carcinoma (Chronic) Hospital Course and Treatment Operations: cholecystecomy - Laparoscopic converted to open cholecystectomy, - Summary of Care Provided: The patient is a 62 year old F who presented on 11/30/17 with right upper quadrant pain. Dr. Rodriguez performed a laparoscopic converted to open cholecystectomy on 12/01/17. Patient tolerated the procedure well. An incidental liver lesion was found. Patient has a history of breast cancer. She recently completed chemotherapy. Patient had AYAAN drain placed which was removed on . On 12/03/17, hospitalist was consulted for fluttering of the heart and EKG demonstrating PAC's with normal sinus rhythm. Patient's potassium and magnesium were replaced. HCTZ was discontinued due to patient's lack of appetite and low potassium and magnesium. Upon discharge, patient noted incision al discomfort with movement. She notes her appetite is slowly improving. She notes positive flatus. Discharge Diet: Light diet - advance as tolerated Discharge Activity: Return to Normal Activity, May Not Drive - for 2-3 days or while taking narcotic pain medicataions., - - Do not drive, work heavy equipment or sign legal documents for 24 hours. May shower in (days): 1 - with the bandage in place. Additional Activity Instructions:: Pain medication may cause nausea. You should typically eat light foods as you take your pain medications. Pain medication may also cause constipation. If this is a problem for you, please discuss with your doctor. Call your doctor if your incision/area has: Continuous Slow Oozing, Sudden Increased Bleeding, Increased Pain/ Swelling, Increased Redness, Foul Smelling Discharge, Fever of 101 or Higher Call your doctor if you observe: Fever of 101 or Higher Suture Line Care: Avoid Pulling/Pushing, Avoid Pinching/Bending Cleanse incision/area with: Soap & Water Additional Dressing/Incision Instructions:: Leave operative bandaids on for 2 days. When you remove dressing, leave Steri-Strips on until your follow-up appointment, or until the Steri-Strips fall off on their own. Home Medications: Medications to take at Discharge Cetirizine HCl [Allergy Relief] 10 mg PO DAILY 05/16/17 Doxycycline Hyclate 20 mg PO DAILY 05/16/17 Empagliflozin [Jardiance] 10 mg PO DAILY 05/16/17 Escitalopram Oxalate [Lexapro] 20 mg PO DAILY 05/16/17 Levothyroxine [Synthroid] 125 mcg PO DAILY 05/16/17 Propranolol HCl 80 mg PO DAILY 05/16/17 Multivitamin [Daily Multiple Vitamin] 1 each PO DAILY 11/30/17 Sitagliptin Phos/Metformin HCl [Janumet Xr 100-1,000 mg Tablet] 1 tab PO DAILY 11/30/17 Vitamin E 400 unit PO DAILY 11/30/17 Hydrocodone Bitart/Apap 5-325 [[place] 5/325] 1 tab PO Q6H PRN PRN #15 tab Lisinopril [Zestril] 5 mg PO DAILY #30 tab 12/04/17 Following Prescrptions Were Given to Patient: Hydrocodone Bitart/Apap 5-325 [[place] 5/325] 1 tab PO Q6H PRN PRN #15 tab PRN Reason: Severe Pain (-08/28) Lisinopril [Zestril] 5 mg PO DAILY #30 tab Primary Care Physician: Partha Li MD [Primary Care Provider] - Please follow up with your Primary Care Physician in: 7-10 days Please Follow Up With: Misa Marquez PA-C - [phone] When: 10 days Disposition: Home Minutes spent on discharge:: 30 Patient Condition:: Stable Meaningful Use Info Meaningful Use Diagnoses (Choose all that apply): None applicable Code Visit Inpatient E&M: 57999 Disch Hosp
== END 2017-12-04 11:22 | disposition home or self-care (01) | DRG 415 ==
LOC: ED 14:16 → MS3 14:57
PROVIDERS: Anesthesiology; Physician Assistant; Admitting Provider Surgery; Emergency Provider Emergency Medicine; Family Provider Family Medicine; PCP Family Medicine; Visit Provider Internal Medicine
PROC: 0FT40ZZ Resection of Gallbladder, Open Approach (ICD-10-PCS; CPT 47610; principal; 2017-12-01 09:40)
DX: K80.00 Calculus of gallbladder with acute cholecystitis without obstruction (principal); K82.1 Hydrops of gallbladder; C78.7 Secondary malignant neoplasm of liver and intrahepatic bile duct; C78.89 Secondary malignant neoplasm of other digestive organs; E83.42 Hypomagnesemia; E87.1 Hypo-osmolality and hyponatremia; E87.6 Hypokalemia; I10 Essential (primary) hypertension; E03.9 Hypothyroidism, unspecified; E11.9 Type 2 diabetes mellitus without complications; E78.5 Hyperlipidemia, unspecified; Z85.3 Personal history of malignant neoplasm of breast; Z79.84 Long term (current) use of oral hypoglycemic drugs; Z79.899 Other long term (current) drug therapy; Z53.31 Laparoscopic surgical procedure converted to open procedure; Z92.21 Personal history of antineoplastic chemotherapy; Z90.13 Acquired absence of bilateral breasts and nipples
CPT/HCPCS: 36591; 76705; 80048; 80053; 80076; 82150; 82962; 83036; 83690; 83735; 84100; 84443; 85025; 88304; 88305; 88307; 88313; 88341; 88342; 93005; 94762; 99281; J7050; J7120; A4216; J1170; J2405

== ENCOUNTER → 2017-12-17 14:46 | Outpatient (CLI) | payer OTHER, SELFPAY ==
[2017-12-17 14:58] LABS: Bacteria 0 SEEN /hpf (None Seen); Red Blood Cells-Urine 0 SEEN /hpf (0-5)
[2017-12-17 16:09] LABS: Absolute Lymphocyte Count 0.83 X10^3/ul (0.83-4.51); Absolute Neutrophil Count 9.5 X10^3/uL (2.0-7.7); Basophil# 0.02 X10^3/uL; Basophil% 0.2 % (0-1); Eosinophil# 0.06 X10^3/uL; Eosinophils% 0.5 % (0-5); Hematocrit 35.3 % (37-47); Hemoglobin 10.8 g/dl (12.0-15.0); Lymphocyte # 0.83 X10^3/ul (4.0); Lymphocyte % 7.5 % (19-41); Mean Corp Hgb Conc 30.6 g/gl (32-36); Mean Corpuscular Hgb 25.8 pg (27.0-32.0); Mean Corpuscular Volume 84.2 fL (81-99); Mean Platelet Vol. 9.9 fl (6.2-12.0); Monocyte# 0.62 X10^3/uL; Monocyte% 5.6 % (0-10); Neutrophil # 9.47 X10^3/uL (2.7-7.7); Neutrophil % 85.8 % (47-70); Platelet Count 463 K/mm3 (150-450); RBC Distribution Width CV 17.1 % (11.6-14.6); RBC Distribution Width SD 52.1 fl (35.1-43.9); Red Blood Count 4.19 M/mm3 (4.2-5.4)
[2017-12-17 16:17] LABS: POSITIVE COUNT NO; POSITIVE DIFFERENTIAL NO; POSITIVE MORPHOLOGY NO
[2017-12-17 16:38] LABS: ALB/GLOB Ratio 0.5 RATIO (0.9-2.4); AST(SGOT) 353 U/L (15-37); Alanine Aminotransfer ALT/SGPT 246 U/L (13-56); Albumin, Serum 2.3 g/dL (3.2-5.0); Alkaline Phosphatase 996 U/L (45-117); Anion Gap 10 (5-15); BUN 14 mg/dL (7-18); BUN/Creat Ratio 28.5 RATIO (10-20); Calcium,Total 9.1 mg/dL (8.5-10.1); Chloride 102 mmol/L (98-107); Creatinine, Serum 0.49 mg/dL (0.55-1.02); EST Glomerular Filtration Rate 135 mL/min (>60); Est Glom Filt Rate - Afr Amer 163 mL/min (>60); Globulin 4.4 g/dL (2.2-4.2); Glucose 151 mg/dL (70-110); Potassium 4.2 mmol/L (3.5-5.1); Protein, Total 6.7 g/dL (6.4-8.2); Sodium Level 138 mmol/L (136-145)
[2017-12-17 16:41] LABS: Color, Urine Amber (Yellow); Glucose, Dipstick 250 mg/dl (Normal); Leukocyte Esterase-Dipstick 100 /ul (Negative); Nitrite-Dipstick Negative (Negative); Occult Blood-Urine 25 /ul (Negative); Protein-Dipstick 30 mg/dl (Negative); Urine Clarity Sl. Cloudy (Clear); Urine Urobilinogen 8 mg/dl (Normal)
[2017-12-17 16:47] LABS: Urine Bilirubin Dipstick 6 mg/dL (Negative)
[2017-12-17 16:49] LABS: Ketone-Dipstick 150 mg/dl (Negative)
[2017-12-17 16:50] LABS: White Blood Cells 10-25 SEEN /hpf (0-5)
[2017-12-17 16:51] LABS: Mucous, Urine 2+ /hpf (<or=2+); Squamous Epithelial Cells - UA 5-10 SEEN /hpf (5-10)
[2017-12-17 16:52] LABS: Yeast-Urine RARE /hpf (None Seen)
[2017-12-18 08:38] LABS: Amylase 19 U/L (25-115); Lipase 129 U/L (73-393)
== END ==
PROVIDERS: Family Provider Family Medicine; PCP Family Medicine; Visit Provider Family Medicine
DX: R79.89 Other specified abnormal findings of blood chemistry (principal); R10.9 Unspecified abdominal pain; R31.9 Hematuria, unspecified
CPT/HCPCS: 36415; 80053; 81001; 82150; 83690; 85025; 87077; 87086; 87088; 87186

== ENCOUNTER → 2017-12-18 09:31 | Outpatient (CLI) | payer OTHER, SELFPAY ==
--- NOTE | 2017-12-18 09:34 | US_ITS ---
STUDY: ABDOMINAL ULTRASOUND - RIGHT UPPER QUADRANT REASON FOR VISIT: Female, 62 years old. Elevated liver function tests. Prior recent cholecystectomy. TECHNIQUE: Ultrasound evaluation of the right upper quadrant was performed with real-time and static okeefe-scale imaging. TECHNICAL QUALITY: Adequate. COMPARISON: Comparison is made with prior examination dated November 30, 2017. FINDINGS: Liver: The liver is enlarged and measures 22.4 cm. There is a heterogeneous echogenicity of the liver. Nodular appearance of the liver. Several small hypoechoic nodules are seen scattered throughout the liver. The largest measures 2 cm x 1.8 cm x 1.6 cm cyst. This is in the right lobe. Small amount of perihepatic fluid collection is seen. The bile ducts are within normal limits. There is hepatic color flow. The direction of portal flow is hepatopetal. There is no demonstrated mass lesion. Gallbladder: The patient is status post cholecystectomy. A fluid collection measuring 3.7 cm x 3.2 sides by 2.1 cm is seen in the gallbladder fossa. The patient is status post recent cholecystectomy. Common Bile Duct (C.B.D.): The common bile duct measures 4.8 mm. Pancreas: Normal size of the head, body and tail of the pancreas. There is normal echogenicity of the pancreas. There is no demonstrated pancreatic mass or cyst. Right Kidney: Normal size of the right kidney. The right kidney measures 10.4 cm x 4.6 x 4.0 cm. Normal renal cortex. The right cortex measures 1.3 cm. There is a 1.2 cm x 1.3 cm x 1.4 cm echogenic nodule in the lower pole. This is suggestive of an angiomyolipoma. This is unchanged. There is no right hydronephrosis. US/Abdomen Limited IMPRESSION: Status post cholecystectomy with postoperative changes seen in the gallbladder fossa. Hepatomegaly with heterogeneous echotexture and multiple hypoechoic nodules suggestive of metastatic disease. Electronically Signed: Juan Santiago MD at 10:47 EST Tel [phone], Service support ,
== END ==
PROVIDERS: Family Provider Family Medicine; PCP Family Medicine; Visit Provider Family Medicine
DX: R79.89 Other specified abnormal findings of blood chemistry (principal)
CPT/HCPCS: 76705